=== PATIENT | female | born 1975 | race Caucasian/White ===

== ENCOUNTER 2025-04-14 05:38 | Day surgery (SDC) | payer OTHER, MEDICAID ==
[2025-01-19 10:25] VITALS: BMI 29.5
[~2025-04-14 05:38] MED LIST: Lidocaine 1% w/Epinephrine 1:200K 30 ML VIAL ONE
[2025-04-14] MEDS ORDERED: oFLOXacin 0.3% Opth 5 ML BOT ONE (06:21)
[2025-04-14] MEDS ORDERED: Sevoflurane 250 ML INH ANEST BOTTLE ONE (06:22)
[2025-04-14] MEDS ORDERED: Lidocaine 1% w/Epinephrine 1:200K 30 ML VIAL ONE (06:22)
[2025-04-14] MEDS ORDERED: Lidocaine 1% PF 5 ML VIAL ONE (07:33)
[2025-04-14] MEDS ORDERED: PROPOFOL 20 ML ONE (07:33)
[2025-04-14 07:43] LABS: Anion Gap 11 mmol/L (10-20); BUN (Urea Nitrogen) 16 mg/dL (7.0-18.7); Calc. Creatinine Clearance 89 mL/min (70-130); Calcium 8.9 mg/dL (7.8-10.44); Carbon Dioxide 21 mmol/L (22-29); Chloride 112 mmol/L (98-107); Glucose 116 mg/dL (70-105); Potassium 4.3 mmol/L (3.5-5.1); Sodium 140 mmol/L (136-145)
[2025-04-14] MEDS ORDERED: PHENYLEPHRINE-NS 100 MCG/ML 10 ML SYRINGE ONE (08:08)
[2025-04-14] MEDS ORDERED: HYDROcodone/Acetaminophen 5/325 mg Tablet ONE (11:03)
== END 2025-04-14 11:20 | disposition home or self-care (01) ==
LOC: CSHSDC 05:38
PROVIDERS: ATTEND Otolaryngology Plastic Surgery within the Head & Neck
PROC: 09PE0SZ Removal of Hearing Device from Left Inner Ear, Open Approach (ICD-10-PCS; principal; 2025-04-14)
PROC: 09PE0SZ Removal of Hearing Device from Left Inner Ear, Open Approach (ICD-10-PCS; 2025-04-14)
DX: Z47.2 Encounter for removal of internal fixation device (principal); H91.92 Unspecified hearing loss, left ear; I10 Essential (primary) hypertension; E11.9 Type 2 diabetes mellitus without complications; E05.90 Thyrotoxicosis, unspecified without thyrotoxic crisis or storm; Z88.5 Allergy status to narcotic agent; Z88.8 Allergy status to other drugs, medicaments and biological substances; Z88.7 Allergy status to serum and vaccine; Z90.49 Acquired absence of other specified parts of digestive tract; Z91.040 Latex allergy status; Z96.9 Presence of functional implant, unspecified; Z96.21 Cochlear implant status; Z98.890 Other specified postprocedural states
CPT/HCPCS: 69711; 80048; 82962; J1100; J2250; J2704; 36415; 36416